=== PATIENT | male | born 1980 | race Two or more races ===

== ENCOUNTER → 2022-04-04 11:07 | Outpatient (BNVA) | payer OTHER, SELFPAY | PROVIDERS: PCP Internal Medicine; Visit Provider Internal Medicine Cardiovascular Disease | DX: I25.10 Atherosclerotic heart disease of native coronary artery without angina pectoris (principal) | CPT/HCPCS: 93005 ==

== ENCOUNTER → 2022-04-04 13:41 | Outpatient (REF) | payer OTHER, SELFPAY ==
--- NOTE | 2022-04-04 13:49 | CA_ITS ---
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 Study Quality: Adequate ECG Rhythm: Sinus Conclusions: - 1. Normal LV systolic and diastolic function with underlying regional wall motion abnormality consistent with underlying CAD 2. Normal cardiac valvular Dopplers 3. Normal RV systolic pressure 4. No gross pericardial effusion Findings Procedure Information Contrast agent, definity, is being given per protocol without apparent complications. Left Ventricle Normal left ventricular size, thickness, and systolic function. The visually estimated ejection fraction is between 55-60%. There is evidence of regional wall motion abnormalities. Spectral Doppler is indicative of a normal filling pattern. Wall Motion Rest Echo Findings The basal inferior and mid inferior segments are hypokinetic. The apical inferior and apical septum segments are akinetic. The apex segment is dyskinetic. All other scored wall segments showed normal motion. Right Ventricle Normal right ventricular cavity size and systolic function. Atria The left atrium is likely dilated. Interatrial shunt cannot be excluded. The right atrium is normal in size. Aortic Valve Normal aortic valve structure and function. There is no aortic valve stenosis. There is no aortic valve regurgitation. Mitral Valve Normal mitral valve structure and function. There is trace mitral valve regurgitation. There is no mitral valve stenosis. Pulmonic Valve The pulmonic valve was not well visualized. Tricuspid Valve Likely normal tricuspid valve structure and function. There is trace tricuspid valve regurgitation. The right ventricular systolic pressure is normal. The right ventricular systolic pressure is 24 mmHg. Normal right atrial pressure. There is no evidence of pulmonary hypertension. Great Vessels All visible segments of the aorta are normal in size. The pulmonary artery was not well visualized. Venous The inferior vena cava is normal in size and collapses greater than 50% with inspiration. Pericardium/Pleural There is no evidence of pericardial effusion. Prior Study Comparison No prior study available for comparison. Measurements 2D Linear Measurements IVSd: 1.11 0.6-0.9/0.6-1.0 cm LVIDd: 5.54 3.9-5.3/4.2-5.9 cm LVIDd Index: 2.43 2.4-3.2/2.2-3.1 cm/m2 LVIDs: 4.32 2.0-3.6 cm LVPWd: 0.85 0.7-1.1 cm LA Diam: 4.40 2.7-3.8/3.0-4.0 cm LAIDs Index: 1.93 1.5-2.3 cm/m2 LV Mass: 261.22 67-162/88-224 g LV Mass Index: 114.57 43-95/49-115 g/m2 LVOT Diam: 2.40 3.0+(-)1.3 cm 2D Systolic Function EF 4C: 57.80 >55% EF 2C: 53.30 >55% EF BiP: 56.60 >55% Mitral Valve MV Pk E: 0.90 MV PK A: 0.61 MV Decel Time: 165.00 E/A: 1.50 E'Lateral: 11.30 E'Medial: 7.72 E/E' Med: 11.60 E/E' Lat: 7.90 PHT: 48.00 MVA PHT: 4.58 Decel Mccurtain: 5.41 Aortic Valve AoV Pk Scooby: 1.40 AoV Pk Grad: 8.00 SAGAR: 4.30 LVOT LVOT Pk Scooby: 1.36 LVOT Mn Scooby: 0.87 LVOT VTI: 0.24 LVOT Pk Grad: 7.00 LVOT Mn Grad: 3.00 LVOT Diam: 2.40 LVOT Area: 4.52 Diastolic Function MV Pk E: 0.90 MV Pk A: 0.61 E/A: 1.50 E'Medial: 7.72 E/E' Med: 11.60 E' Laterial: 11.30 E/E' Lat: 7.90 Right Ventricle TAPSE (mm): 23.10 TVS' Scooby: 12.20 Tricuspid Valve TR Pk Scooby: 2.29 TR Pk Grad: 21.00 RA Press: 3.00 RVSP: 24.00 Great Vessels Aorta Sinus of Valsalva: 3.20 2.0-3.5 cm Ao Asc: 3.20 2.1-3.4 cm Pulmonary Veins Pulm Vein S/D 0.80 Pulmonary Valve PV Pk Scooby: 1.09 Peak PV Grad: 5.00 Updated in Other Vendor System with Status of Final Tomás Stahl MD electronically signed on 04/06/2022 6:24:30 PM with status of Final
== END ==
LOC: HO.CARD 13:41
PROVIDERS: Visit Provider Internal Medicine Cardiovascular Disease
DX: I25.10 Atherosclerotic heart disease of native coronary artery without angina pectoris (principal)
CPT/HCPCS: 93306; Q9957

== ENCOUNTER → 2022-04-06 10:54 | Outpatient (REF) | payer OTHER, SELFPAY ==
--- NOTE | 2022-04-06 10:57 | CA_ITS ---
Acquisition Time: 2022-04-06 11:02:30 Total Exercise Time: 00:12:38 Test Indications: Screening for CAD Medications: ASA CLOPIDOGREL ATORVASTATIN LISINOPRIL METOPROLOL Protocol: STORMY Max HR: 184 BPM 103% of Pred: 178 BPM Max BP: 172/082 mmHG Max Work Load: 14.5 METS Exercise stress test with exercise 12 min 38 sec of Stormy protocol, achieving 103% MPHR, 14.5 METs, with request to stop due to leg fatigue, no anginal symptoms, with isolated PVCs mostly occurring in recovery, with normotensive response to exercise, without EKG changes meeting criteria for ischemia. Echo images obtained by tech at rest and immediately post peak exercise. Definity contrast used. Test reviewed with Dr Stahl Referred By: Kirk Hensley Overread By: MARCELLE DICKERSON
== END ==
LOC: HO.CARD 10:54
PROVIDERS: Visit Provider Internal Medicine Cardiovascular Disease
DX: I25.10 Atherosclerotic heart disease of native coronary artery without angina pectoris (principal)
CPT/HCPCS: 93350; Q9957